=== PATIENT | female | born 1960 | race Caucasian/White ===

== ENCOUNTER 2020-10-20 08:22 | Emergency (ER) | payer BC ==
[2020-10-20 08:34] VITALS: BP 152/66; PULSE 88
--- NOTE | 2020-10-20 08:41 | EDM.PDOC ---
ED HPI GENERAL MEDICAL PROBLEM - General Chief Complaint: Lower Extremity Injury/Pain Stated Complaint: left knee pain Time Seen by Provider: 10/20/20 08:32 Source of Information: Reports: Patient History Limitations: Reports: No Limitations - History of Present Illness INITIAL COMMENTS - FREE TEXT/NARRATIVE: Patient presents to the ED for let knee pain. She states that she has chronic problems with this knee and is due for a total knee replacement. She has not scheduled his yet. Yesterday her knee started to swell and over the night became unbearable. She has crutches at home and started using this. NO injury to this. 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 left knee Pain Score (Numeric/FACES): 10 - Related Data Allergies Allergy/AdvReac Type Severity Reaction Status Date / Time lisinopril Allergy Cough Verified 10/20/20 08:27 Home Meds: Home Meds Aspirin [Children's Aspirin] 81 mg PO DAILY 06/17/13 [History] Cholecalciferol (Vitamin D3) [Vitamin D] 6,000 unit PO DAILY 06/17/13 [History] FLUoxetine HCl [Fluoxetine HCl] 20 mg PO BEDTIME 06/17/13 [History] Ibuprofen [Motrin] 800 mg PO DAILY PRN 06/17/13 [History] atorvaSTATin Calcium [Atorvastatin Calcium] 40 mg PO BEDTIME 06/17/13 [History] Clopidogrel [Plavix] 75 mg PO DAILY 09/14/15 [History] Insulin Glarg,Human.Rec.Analog [LantUS Solostar] 40 units SUBCUT DAILY 09/14/15 [History] Isosorbide Mononitrate [Imdur] 30 mg PO DAILY 09/14/15 [History] Metoprolol Tartrate 25 mg PO BID 09/14/15 [History] metFORMIN HCl [Glucophage] 1,000 mg PO BIDMEALS 09/14/15 [History] Hydrocodone/Acetaminophen [HYDROcodone-Acetaminophen 5-325 MG] 1 each PO Q6HR #14 tab 10/20/20 [Rx] Past Medical History HEENT History: Reports: None. Denies: Allergic Rhinitis, Hard of Hearing, Impaired Vision Cardiovascular History: Reports: Bypass, CAD, High Cholesterol, Hypertension, KS, Stents, Other (See Below) Other Cardiovascular History: Known history of coronary artery disease including small KS on 06/17/13 with subsequent procedures as below. No known hyperlipidemia with secondary fatty liver, chronic cardiomegaly without history of CHF Respiratory History: Reports: Intubation, Previous, Other (See Below) Other Respiratory History: Intubation with heart procedures as below Gastrointestinal History: Reports: GERD, Other (See Below) Other Gastrointestinal History: GERD well-controlled after surgery with history of pancreatic pseudocyst by MRI, fatty liver as above, asplenic Genitourinary History: Reports: None. 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 Denies: Eczema, Psoriasis - Infectious Disease History Infectious Disease History: Reports: Chicken Pox, MRSA - Past Surgical History HEENT Surgical History: Reports: Oral Surgery, Tonsillectomy, Other (See Below) Cardiovascular Surgical History: Reports: Coronary Artery Bypass, Coronary Artery Stent, Other (See Below) GI Surgical History: Reports: Appendectomy, Cholecystectomy, Jagruti Fundoplication, Other (See Below) Female Surgical History: Reports: Section, Hysterectomy, Salpingo- Oophorectomy, Other (See Below) Musculoskeletal Surgical History: Reports: Knee Replacement, Other (See Below) - Past Imaging History Past Imaging History: Reports: Angiography, CAT Scan, MRI, Stress Testing, Ultrasound, Venous Doppler Social & Family History - Family History Cardiac: Reports: CAD, Heart Failure, High Cholesterol, Hypertension, Other (See Below) Other Cardiac Family History: Mother with fatal CHF at age 19, father with hyperlipidemia, hypertension in mother Respiratory: Reports: Asthma, Other (See Below) Other Respiratory Family Hisory: Mother Musculoskeletal: Reports: Osteoporosis, Other (See Below) Other Musculoskeletal Family History: Osteoporosis in mother Endocrine/Metabolic: Reports: Diabetes, type II, IDDM, Other (See Below) Other Endocrine/Metabolic Family History: Mother with IDDM, 2 sisters with AODM Hematologic: Reports: Other (See Below) Other Hematologic Family History: Spherocytosis in father, 2 brothers, and 2 daughters with fatal disease in her brothers during infancy Oncologic: Reports: Breast (Mother in her late 80s), Skin (Mother) - Caffeine Use Caffeine Use: Reports: Coffee (Occasional), Soda (Occasional), Tea (Occasional). Denies: Energy Drinks - Sexual History Sexual History: Reports: Sexually Active - Living Situation & Occupation Living situation: Reports: , with Family Occupation: Employed Review of Systems - Review of Systems Review Of Systems: See Below Constitutional: Reports: No Symptoms. Denies: Chills, Diaphoresis, Fever Eyes: Reports: No Symptoms Ears: Reports: No Symptoms Nose: Reports: No Symptoms Mouth/Throat: Reports: No Symptoms Respiratory: Reports: No Symptoms Cardiovascular: Reports: No Symptoms GI/Abdominal: Reports: No Symptoms Genitourinary: Reports: No Symptoms Musculoskeletal: Reports: Joint Pain (left knee), Joint Swelling (left knee) Skin: Reports: No Symptoms Neurological: Reports: No Symptoms ED EXAM, GENERAL - Physical Exam Exam: See Below Exam Limited By: No Limitations General Appearance: Alert, WD/WN, No Apparent Distress Ears: Normal External Exam Nose: Normal Inspection, Normal Mucosa Throat/Mouth: Normal Inspection, Normal Lips, Normal Voice Head: Atraumatic Neck: Normal Inspection, Full Range of Motion Respiratory/Chest: No Respiratory Distress, Lungs Clear, Normal Breath Sounds, No Accessory Muscle Use, Chest Non-Tender Cardiovascular: Normal Peripheral Pulses, Regular Rate, Rhythm Extremities: Other (left knee with moderate joint effusion. Still has ability to do quad set and straight leg raise.has full extension but prefer 10 degreees of flexion. flexion to 45 degrees due to joint effusion. No other exam able to be done due to effusion) Neurological: Alert, Oriented, CN II-XII Intact, Normal Cognition ED TRAUMA EXTREMITY PROCEDURES - Additional/Other Procedure(s) Other (Free Text) Procedure(s): left knee joint aspiration and injection. skin prepped with betadine. using a 18 gauge needle, aspirated 5 cc of clear serous fluid. Injected 10 mg of depomedrol and 3 cc of lidocaine. tolerated well. bandaid placed Course - Vital Signs Last Recorded V/S: Last Vital Signs Temp 37.3 C 10/20/20 08:27 Pulse 88 10/20/20 08:27 Resp 16 10/20/20 08:27 BP 152/66 H 10/20/20 08:27 Pulse Ox 100 10/20/20 08:27 - Orders/Labs/Meds Orders: Active Orders 24 hr Category Date Time Status Knee 3V Lt [CR] Stat Exams 10/20/20 08:26 Ordered Meds: Medications Discontinued Medications Generic Name Dose Route Start Last Admin Trade Name Jessica PRN Reason Stop Dose Admin Lidocaine HCl 5 ml 10/20/20 08:35 10/20/20 08:44 Lidocaine 1% 5 Ml Sdv IARTIC 10/20/20 08:36 5 ml ONETIME ONE Administration Methylprednisolone Acetate 10 mg 10/20/20 08:31 10/20/20 08:44 Methylprednisolone Acetate 40 Mg/Ml Sdv IARTIC 10/20/20 08:32 10 mg ONETIME ONE Administration - Radiology Interpretation Free Text/Narrative:: left knee with patellofemoral DJD, medial and lateral compartments are relatively well preserved. No fracture. joint effusion noted - Re-Assessments/Exams Free Text/Narrative Re-Assessment/Exam: 10/20/20 08:43 will get an x-ray 10/20/20 09:05 Patellofemoral DJD, medial and lateral joint spaces preserved. Injection done. Discussed ortho follow up with her. crutches and non weight bearing until can walk without a limp. Ice, rui wrap Departure - Departure Time of Disposition: 09:04 Disposition: Home, Self-Care 01 Clinical Impression: Joint effusion of knee - Discharge Information *PRESCRIPTION DRUG MONITORING PROGRAM REVIEWED*: Not Applicable *COPY OF PRESCRIPTION DRUG MONITORING REPORT IN PATIENT TI: Not Applicable Prescriptions: Hydrocodone/Acetaminophen [HYDROcodone-Acetaminophen 5-325 MG] 1 each PO Q6HR #14 tab Instructions: Crutch Use, Adult, [id number] Referrals: Jamee Anderson NP [Primary Care Provider] - Forms: ED Department Discharge Additional Instructions: ice, elevated, use an rui wrap and crutches. Follow up with orthopedics. Injection of steroid into the knee may help with swelling. Use the hydrocodone as needed for pain. Sepsis Event Note (ED) - Evaluation Sepsis Screening Result: No Definite Risk - Focused Exam Vital Signs: Vital Signs Temp Pulse Resp BP Pulse Ox 10/20/20 08:27 37.3 C 88 16 152/66 H 100 - My Orders Last 24 Hours: My Active Orders 10/20/20 08:26 Knee 3V Lt [CR] Stat - Assessment/Plan Last 24 Hours: My Active Orders 10/20/20 08:26 Knee 3V Lt [CR] Stat
[2020-10-20] MEDS: methylPREDNISolone Acetate 40 MG/ML SDV IARTIC ONE (08:44)
== END 2020-10-20 09:23 | disposition home or self-care (01) ==
LOC: LL.ED 08:22
DX: M25.462 Effusion, left knee (principal); E11.22 Type 2 diabetes mellitus with diabetic chronic kidney disease; I12.9 Hypertensive chronic kidney disease with stage 1 through stage 4 chronic kidney disease, or unspecified chronic kidney disease; N18.9 Chronic kidney disease, unspecified; I25.10 Atherosclerotic heart disease of native coronary artery without angina pectoris; E78.00 Pure hypercholesterolemia, unspecified; I25.2 Old myocardial infarction; E66.9 Obesity, unspecified; Z68.30 Body mass index [BMI] 30.0-30.9, adult; Z95.1 Presence of aortocoronary bypass graft; Z88.8 Allergy status to other drugs, medicaments and biological substances; Z79.02 Long term (current) use of antithrombotics/antiplatelets; Z79.82 Long term (current) use of aspirin; Z79.4 Long term (current) use of insulin; Z86.73 Personal history of transient ischemic attack (TIA), and cerebral infarction without residual deficits; Z90.49 Acquired absence of other specified parts of digestive tract
CPT/HCPCS: 20610; 73562-LT; 99283-25; 99284; J1030